=== PATIENT | female | born 1955 | race Caucasian/White ===

== ENCOUNTER 2018-08-18 09:06 | Day surgery (SDC) | payer OTHER ==
[~2018-08-18] VITALS: Ht 170.2 cm; Wt 91.2 kg
[~2018-08-18 09:06] MED LIST: Aspir 8181 MG PO; FAMO20 PO; GLIP10ER PO; GLIP5 PO; Humalog Mi100 UNIT/4; INSULANPEN SC; LISI5 PO; LOSA50 PO; METF500 PO; METFORMIN HCL1000 MG PO; SIMV10 PO; VITAMIN B-121000 MCG PO
== END 2018-08-18 11:06 | disposition home or self-care (01) ==
LOC: ORSCSDS 09:06
PROVIDERS: Surgery
PROC: 0DBM8ZX Excision of Descending Colon, Via Natural or Artificial Opening Endoscopic, Diagnostic (ICD-10-PCS; principal; 2018-08-18 10:00)
PROC: 0DBK8ZX Excision of Ascending Colon, Via Natural or Artificial Opening Endoscopic, Diagnostic (ICD-10-PCS; principal; 2018-08-18 10:00)
DX: Z12.11 Encounter for screening for malignant neoplasm of colon (principal); Z86.010 Personal history of colon polyps; D12.2 Benign neoplasm of ascending colon; D12.4 Benign neoplasm of descending colon; I10 Essential (primary) hypertension; K21.9 Gastro-esophageal reflux disease without esophagitis; Z87.891 Personal history of nicotine dependence; E11.9 Type 2 diabetes mellitus without complications; Z79.4 Long term (current) use of insulin; Z79.899 Other long term (current) drug therapy; Z79.82 Long term (current) use of aspirin
CPT/HCPCS: 82947; 88305; J2405; J7120